=== PATIENT | male | born 1985 | race Caucasian/White ===

== ENCOUNTER 2025-11-01 10:54 | Emergency (ER) | payer BC, SELFPAY ==
--- NOTE | 2025-11-01 10:56 | XR_ITS ---
WS: [id number] XR chest 1V portable [id number] REASON FOR EXAM: cp FINDINGS: The heart and mediastinum are within normal limits. Normal heart size. Calcified granulomatous disease bilaterally. No acute pulmonary parenchymal or pleural abnormality. Bony thorax is intact without significant abnormality. XR/XR chest 1V portable [id number] IMPRESSION: No acute chest abnormality.
--- NOTE | 2025-11-01 10:56 | ECG_ITS ---
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 Measurements Intervals [place] Rate: 93 P: 80 FL: 157 QRS: 81 QRSD: 88 T: 39 QT: 342 QTc: 427 Interpretive Statements SINUS RHYTHM NONSPECIFIC T-WAVE ABNORMALITY No previous ECG available for comparison Electronically Signed On 11-01-2025 17:20:34 PHOTO EDITOR by Carlton Hahn M.D. [email or web address] [id number]
[2025-11-01 10:58] VITALS: BP 135/89; PULSE 89; TEMP 36.7; O2SAT 100; BMI 27.7
--- NOTE | 2025-11-01 11:41 | ED_ITS ---
HPI - Chest Pain 2 General: Chief Complaint: Chest Pain Stated Complaint: chest pain Time Seen by Provider: 11/01/25 11:18 Source: patient Mode of arrival: ambulatory Limitations: no limitations History of Present Illness: 39-year-old male states that he was runn ing on a treadmill roughly an hour ago's had onset of sharp pain in the center of his chest. States pain lasted roughly 5 to 10 minutes and has since resolved. Has had some slight tingling in his arms he denies any shortness of breath currently denies any nausea or diaphoresis denies any history of heart issues. Related Data Allergies Allergy/AdvReac Type Severity Reaction Status Date / Time No Known Allergies Allergy Verified 11/01/25 11:06 Review of Systems 2 Card: Reports: chest pain Physical Exam 2 Const: COMMON NORMALS: no acute distress, patient oriented x3 and healthy appearing HENMT: COMMON NORMALS: normocephalic and atraumatic HEAD & SCALP: n ormocephalic and atraumatic Neck/C-Spine: COMMON NORMALS: full ROM and supple Chest: COMMONS NORMALS: normal inspection of the chest and normal palpation of entire chest wall Resp: COMMON NORMALS: normal respiratory effort, No retractions, No use of accessory muscles and clear to auscultation bilaterally AUSCULTATION: clear to auscultation bilaterally Cardio: COMMON NORMALS: regular rate, regular rhythm and No murmurs present (Cardio) RATE: regular rate RHYTHM: regular rhythm GI: COMMON NORMALS: Normal to inspection, nondistended, normoactive bowel sounds present, Soft to palpation, non-tender and no masses PALPATION: Yes Soft to palpation Extremity: COMMON NORMALS: normal to inspection and full ROM Neuro: COMMON NORMALS: patient oriented x3, moves all extremities and no focal motor deficits Psych: COMMON NORMALS: mental status grossly normal, Normal thought process present and cooperative THOUGHT PROCESS: Normal thought process present Skin: COMMON NORMALS: no rashes or lesions noted and no wounds GENERAL SKIN EXAM: no rashes or lesions noted Course 2 Vital Signs: Vital signs: Vital Signs Temperature 98.1 F 11/01/25 10:58 Pulse Rate 75 11/01/25 12:23 Blood Pressure 117/89 11/01/25 12:23 Pulse Oximetry 98 11/01/25 12:23 Oxygen Delivery Me thod Room Air 11/01/25 12:23 MDM - Chest Pain Medical Decision Making Patient presents here with chest pain has been atypical in nature differential did include pulm emboli, pneumonia, ACS. Did review chest x-ray myself showed no acute abnormality has no signs of PE has been pain-free here initial repeat troponins here are negative heart score is 0 he is stable for discharge follow- up with his PCP and return if worsening he understands agrees to plan EKG interpreted by me at 1102 normal sinus rhythm heart rate [address] elevation QRS 88 QTc 393 Second EKG interpreted by me at 1211 normal sinus rhythm heart rate [address] elevation QRS 89 QTc 386 Medical Records I reviewed the patient's medical records. Lab Data I reviewed the patient's lab results. 11/01/25 11:35 11/01/25 11:35 Radiology Impressions Chest X-Ray 11/01/25 10:56 IMPRESSION: No acute chest abnormality. Laboratory Results WBC 6.70 10^3/uL (3.29-11.43) 11/01/25 11:35 RBC 5.06 10^6/uL (3.85-5.65) 11/01/25 11:35 Hgb 15.90 g/dL (11.27-16.99) 11/01/25 11:35 Hct 47.5 % (37-53) 11/01/25 11:35 MCV 93.9 fl (82-101) 11/01/25 11:35 MCH 31.4 pg (27-33) 11/01/25 11:35 MCHC 33.5 g/dL (30-55) 11/01/25 11:35 RDW 12.6 % (12.1-15.1) 11/01/25 11:35 Plt Count 265 10^3/cmm (157-399) 11/01/25 11:35 MPV 9.0 fL (7.4-10.4) 11/01/25 11:35 Neut % (Auto) 71.5 % 11/01/25 11:35 Lymph % (Auto) 18.7 % 11/01/25 11:35 [place] % (Auto) 7.0 % 11/01/25 11:35 Eos % (Auto) 2.4 % 11/01/25 11:35 Baso % (Auto) 0.3 % 11/01/25 11:35 Neut # (Auto) 4.79 10^3/uL (1.8-7.7) 11/01/25 11:35 Lymph # (Auto) 1.3 10^3/uL (0.8-4.8) 11/01/25 11:35 [place] # (Auto) 0.5 10^3/uL (0.2-0.9) 11/01/25 11:35 Eos # (Auto) 0.2 10^3/uL (0.0-0.8) 11/01/25 11:35 Baso # (Auto) 0.0 10^3/uL (0.0-0.1) 11/01/25 11:35 Nucleated RBC % (auto) 0 % 11/01/25 11:35 Nucleated RBCs # 0.0 /100WBC 11/01/25 11:35 Sodium 142 mmol/L (136-145) 11/01/25 11:35 Potassium 3.8 mmol/L (3.5-5.1) 11/01/25 11:35 Chloride 105 mmol/L (98-107) 11/01/25 11:35 Carbon Dioxide 24 mmol/L (22-29) 11/01/25 11:35 Anion Gap 16.8 (5-19) 11/01/25 11:35 BUN 15 mg/dL (6-20) 11/01/25 11:35 Creatinine 1.2 mg/dL (0.7-1.2) 11/01/25 11:35 GFR Calculation 67.8 mL/min (90-130) L 11/01/25 11:35 Glucose 78 mg/dL (65-115) 11/01/25 11:35 Calculated Osmolality 294 mOsm/kg (285-295) 11/01/25 11:35 Calcium 9.8 mg/dL (8.5-10.5) 11/01/25 11:35 Total Bilirubin 0.5 mg/dL (0.15-1.2) 11/01/25 11:35 AST 16 U/L (0-40) 11/01/25 11:35 ALT 19 U/L (0-41) 11/01/25 11:35 Alkaline Phosphatase 65 U/L (40-130) 11/01/25 11:35 Troponin T Baseline < 6 ng/L (0-15) 11/01/25 11:35 Troponin T 60 Minute 6.64 ng/L (0-15) 11/01/25 12:19 Delta Troponin T 0.16227 ABS# (0-10) 11/01/25 12:19 Total Protein 6.7 g/dL (6.6-8.7) 11/01/25 11:35 Albumin 4.5 g/dL (3.5-5.2) 11/01/25 11:35 Globulin 2.2 g/dL (1.3-4.6) 11/01/25 11:35 Lipase 26 U/L (13-60) 11/01/25 11:35 All radiology interpretation(s) finalized by discharge Discharge Plan Discharge Patient Disposition: Home Clinical Impression: Atypical chest pain Condition: Stable Discharge Orders: Discharge ED (Routine); Ordered 11/01/25 Ordered By: Melisa Morgan Discharge Diet: Advance as tolerated Discharge Activity: Resume usual activity Patient Instructions: Chest Pain (ED) Print Language: Lao Coding Level of Care Code ED Infl[employer] Buildings Laminator for Atifg Juliann Heart Score HEART Score Components History: Slightly Suspicous EKG: Normal Age: Less than 45 yrs Risk Factors: No Risk Factors Known Troponin: Baseline Trop <16 ng/L HEART Score RESULT HEART Score: 0
[2025-11-01 11:49] LABS: Hematocrit 47.5 % (37-53); Hemoglobin 15.90 g/dL (11.27-16.99); Mean Corpuscular HGB Conc 33.5 g/dL (30-55); Mean Corpuscular Hemoglobin 31.4 pg (27-33); Mean Corpuscular Volume 93.9 fl (82-101); Nucleated Red Blood Cells % 0 %; Platelet Count 265 10^3/cmm (157-399); Red Blood Count 5.06 10^6/uL (3.85-5.65); White Blood Count 6.70 10^3/uL (3.29-11.43)
--- NOTE | 2025-11-01 12:11 | ECG_ITS ---
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 Measurements Intervals [place] Rate: 69 P: 65 NM: 159 QRS: 66 QRSD: 89 T: 38 QT: 367 QTc: 395 Interpretive Statements SINUS RHYTHM Compared to ECG 11/01/2025 11:02:10 T-wave abnormality no longer present Electronically Signed On 11-01-2025 17:35:42 PAVILION CUTTER by Carlton Hahn M.D. [id number]
[2025-11-01 12:15] LABS: Troponin(5th) Baseline < 6 ng/L (0-15)
[2025-11-01 12:18] LABS: Alanine Aminotransferase 19 U/L (0-41); Albumin Level 4.5 g/dL (3.5-5.2); Alkaline Phosphatase 65 U/L (40-130); Anion Gap 16.8 (5-19); Aspartate Amino Transferase 16 U/L (0-40); Blood Urea Nitrogen 15 mg/dL (6-20); Calcium 9.8 mg/dL (8.5-10.5); Carbon Dioxide 24 mmol/L (22-29); Chloride 105 mmol/L (98-107); Globulin 2.2 g/dL (1.3-4.6); Glucose 78 mg/dL (65-115); Lipase 26 U/L (13-60); Osmolality Calculated 294 mOsm/kg (285-295); Potassium 3.8 mmol/L (3.5-5.1); Sodium 142 mmol/L (136-145); Total Protein 6.7 g/dL (6.6-8.7)
[2025-11-01 12:23] VITALS: BP 117/89; PULSE 75; O2SAT 98
[2025-11-01 13:10] VITALS: BP 129/88; PULSE 72; O2SAT 98
== END 2025-11-01 13:11 | disposition home or self-care (01) ==
PROVIDERS: Emergency Provider Emergency Medicine
DX: R07.89 Other chest pain (principal)
CPT/HCPCS: 36415; 71045; 80053; 83690; 84484; 85025; 93005; 99285